=== PATIENT | female | born 1950 | race Caucasian/White ===

== ENCOUNTER → 2021-03-31 | Outpatient (CLI) | payer MEDICARE, OTHER | END | disposition home or self-care (01) | LOC: LABWHC1 10:02 | PROVIDERS: ATTEND Orthopaedic Surgery | DX: Z01.812 Encounter for preprocedural laboratory examination (principal); M16.0 Bilateral primary osteoarthritis of hip | CPT/HCPCS: 86850; 86900; 86901; 87070 ==

== ENCOUNTER 2021-04-11 07:27 | Day surgery (SDC) | payer MEDICARE, OTHER ==
[2021-04-06 13:41] VITALS: BMI 23.9
[~2021-04-11 07:27] MED LIST: ACETAMINOPHEN TAB 500 MG TAB PO PRN; DEXAMETHASONE SOD PHOSPHATE 4 MG/ML 1 ML VIAL IV ONE; GABAPENTIN 300 MG CAP PO PRN; LIDOCAINE 1% (10MG/ML) FOR IV START INTRADERMA PRN; MELOXICAM 7.5 MG TAB PO PRN; MIDAZOLAM 2 MG/2 ML VIAL IV PRN; ONDANSETRON 4 MG/2 ML VIAL IVP ONE; TRANEXAMIC ACID 1,000 MG in SODIUM CHLORIDE 0.9% 100 ML IVPB PRN; fentaNYL (PF) 50 MCG/ML 2 ML AMP IVP PRN
[2021-04-11] MEDS: LACTATED RINGERS 1,000 ML IV SCH (08:17)
[2021-04-11] MEDS ORDERED: PHENYLEPHRINE-0.9% NACL SYG 1,000 MCG/10 ML SYRINGE ONE (09:00)
[2021-04-11] MEDS ORDERED: fentaNYL (PF) 50 MCG/ML 2 ML AMP ONE (09:00)
[2021-04-11] MEDS ORDERED: MIDAZOLAM 2 MG/2 ML VIAL ONE (09:00)
[2021-04-11] MEDS ORDERED: SUCCINYLCHOLINE CHLORIDE 100 MG/5 ML SYR IV ONE (09:00)
[2021-04-11] MEDS ORDERED: PROPOFOL 10 MG/ML 20 ML VIAL IV ONE (09:00)
[2021-04-11] MEDS ORDERED: ePHEDrine SULFATE/0.9% NACL/PF 50 MG/5 ML SYRINGE IV ONE (09:00)
[2021-04-11] MEDS ORDERED: KETAMINE 10 MG/ML 20 ML VIAL ONE (09:00)
[2021-04-11] MEDS ORDERED: ceFAZolin 1,000 MG VIAL ONE (09:00)
[2021-04-11] MEDS ORDERED: TRANEXAMIC ACID 1,000 MG/10 ML VIAL ONE (09:00)
[2021-04-11] MEDS ORDERED: SODIUM CHLORIDE 0.9% 100 ML BAG ONE (09:00)
[2021-04-11] MEDS ORDERED: ceFAZolin 1,000 MG in SODIUM CHLORIDE 0.9% 1,000 ML IRRIGATION ONE ×2 (09:03→10:47)
[2021-04-11] MEDS: ROPIVACAINE/EPI/CLONIDINE/KET 50 ML SYRINGE MISCELLANE PRN ×2 (09:29→10:15)
[2021-04-11] MEDS ORDERED: SODIUM CHLORIDE 0.9% 50 ML with ceFAZolin 1,000 MG IV ONE ×2 (10:43)
[2021-04-11] MEDS ORDERED: LACTATED RINGERS 1,000 ML IV ONE (10:51)
--- NOTE | 2021-04-11 11:22 | P.OP ---
Date of Procedure: 04/11/21 Preoperative Diagnosis: Severe osteoarthritis bilateral hips Postoperative Diagnosis: Severe osteoarthritis bilateral hips Procedure(s) Performed: Bilateral total hip arthroplasty with a direct anterior approach Implants: Left Hip: [employer] Polarstem standard size 2 [employer] R3, 3 hole hemispherical acetabular shell, 48 mm [employer] Reflection 6.5 mm cancellus screw, 20 mm, 25 mm [employer] R3, XLPE 20 acetabular liner [employer] Oxinium femoral head 32 m, -3 All components were press-fit. The articulation is Oxinium on polyethylene. Right Hip [employer] Polarstem standard size 2 [employer] R3, 3 hole hemispherical acetabular shell, 48 mm [employer] Reflection 6.5 mm cancellus screw, 20 mm, 25 mm [employer] R3, XLPE 20 acetabular liner [employer]hew Oxinium femoral head 32 m, -3 All components were press-fit. The articulation is Oxinium on polyethylene Anesthesia: spinal Surgeon: Juni Zladivar Billet Driller #1: Lucy Bonilla Estimated Blood Loss (ml): 200 (66 mL returned with Cell Saver) Pathology: other (Bilateral femoral heads) Condition: stable Disposition: PACU Indications for Procedure: After failure of conservative treatment we discussed the surgical and nonsurgical treatment options at length. Patient wishes to proceed with bilateral total hip arthroplasty with a direct anterior approach. Complications specific to this procedure were discussed at length, including but not limited to infection, leg length discrepancy, dislocation, nerve injury, and fracture. Covid-19 was also discussed at length with the patient, and they are aware of the current policies and procedures. The patient was given the option of delaying surgery, but they elect to proceed knowing these risks. Patient is aware of all these complications and informed consent was obtained Operative Findings: The operative findings are consistent with severe osteoarthritis of the bilateral hips Description of Procedure: Patient was seen and evaluated in the preoperative area and the consent was reviewed. The operative site was marked with a skin marker. The patient was then brought to the operating room and given preoperative antibiotics intravenously. 1 g of Tranexamic acid was also given intravenously. A spinal anesthetic was administered by the anesthesia department. The patient was then placed on the [place] table with the bony prominences well-padded. The hip area was then prepped with a ChloraPrep solution and draped in the usual sterile fashion. A universal timeout was then performed, which confirmed the patient's name, surgical site, ALLERGIES, and procedure being performed on the consent. The procedure began with the left hip first. Next the incision site was located at 1 cm distal to the anterior superior iliac spine along the flexion crease of the hip. The skin and subcutaneous tissues were sharply incised. Incision was carefully dissected down to the fascia overlying the tensor fascia grace muscle. This fascia was then incised in line with the incision. Care was taken to stay laterally in order to avoid injuring the lateral femoral cutaneous nerve. Next, using blunt finger dissection, the tensor fascia grace muscle was dissected off its investing fascia. The muscle was then carefully retracted laterally with a cobra retractor over the lateral neck of the femur. Next, the circumflex vessels were identified and cauterized using the AquaMantis device. The anterior hip capsule was then exposed. The capsule was then opened and an inverted T fashion. Cobra retractors were then placed intracapsularly. The retractors were maintained intracapsular throughout the procedure. The proximal femur was then visualized. A small amount of traction was placed on the leg. The femoral neck was then osteotomized appropriate level above the lesser trochanter. A small wedge of bone was then removed from the remaining femoral head. Next, using a corkscrew the femoral head was removed from the acetabulum. On gross visual inspection, the femoral head had complete loss of articular cartilage and multiple periarticular osteophytes. The femoral head was then measured. Attention was then turned to the acetabulum. The acetabulum was exposed and any remaining labrum was excised. Sequential reaming of the acetabulum was performed using fluoroscopic guidance until there was a good bed of bleeding cancellus bone. When the appropriate size was reached, a trial was then placed. The position and fit of the trial was checked with fluoroscopy. The trial was then removed. Then, using fluoroscopic guidance, the final implant was impacted at 20 of anteversion and 40 of abduction, and fully seated in the acetabulum. 2 screws were then placed in the acetabulum. Again fluoroscopy was used to check position of the screws. Next, the liner was then impacted, with a 20 elevated liner located in the anterior superior quadrant. Component locking was confirmed. Attention was then directed to the femur. With the aid of the [place] table, the femur was externally rotated to approximately 130, extended, and adducted under the opposite leg. A side hook was then placed under the proximal femur, and the side hook elevator was used to elevate the proximal femur while releasing the capsule. Retractors were then placed. A capsular release was performed, as well as a release of the conjoined tendon, which afforded excellent visualization of the proximal femur. Next, a box osteotome was used to lateralize the proximal femur. A circus hand was then used to locate the femoral canal. Sequential broaching was then performed with appropriate size which afforded excellent fixation in the proximal femur. A trial was then placed with appropriate head and neck, and the hip was gently reduced with the aid of the [place] table. Fluoroscopy was then used to check position of the components, as well as to ensure equal leg lengths. The hip was then gently dislocated and the trials were then removed. Final implants were then impacted and the hip was again reduced. Final fluoroscopic x-rays confirmed that the components were in anatomic position, as well as equal leg lengths. The hip was also taken through range of motion, and found to be stable. The hip was then copiously irrigated with antibiotic solution with pulsatile lavage. The hip was then irrigated with Irrisept solution. The soft tissues were then injected with a ropivacaine solution, which consisted of 246.25 mg of ropivacaine, 0.5 mg of epinephrine, 30 mg of Toradol, 80 g of clonidine, and 48.45 mL of sterile water, for a total of 50 mL of fluid injected. A second dose of 1 g of Tranexamic acid was also given intravenously. Any blood collecte d by Cell Saver was then returned to the patient at this time. The fascia was then closed with 2-0 strata fix suture. The subcutaneous tissue was closed with 3-0 Vicryl. The subcuticular tissue was closed with 3-0 strata fix suture. The skin was then closed with Exofin skin glue. After the glue and dried, and Optifoam silver impregnated dressing was applied. The drapes were then removed and attention was directed to the right hip. The hip area was then prepped with a ChloraPrep solution and draped in the usual sterile fashion. A universal timeout was then performed, which confirmed the patient's name, surgical site, ALLERGIES, and procedure being performed on the consent. Next the incision site was located at 1 cm distal to the anterior superior iliac spine along the flexion crease of the hip. The skin and subcutaneous tissues were sharply incised. Incision was carefully dissected down to the fascia overlying the tensor fascia grace muscle. This fascia was then incised in line with the incision. Care was taken to stay laterally in order to avoid injuring the lateral femoral cutaneous nerve. Next, using blunt finger dissection, the tensor fascia grace muscle was dissected off its investing fascia. The muscle was then carefully retracted laterally with a cobra retractor over the lateral neck of the femur. Next, the circumflex vessels were identified and cauterized using the AquaMantis device. The anterior hip capsule was then exposed. The capsule was then opened and an inverted T fashion. Cobra retractors were then placed intracapsularly. The retractors were maintained intracapsular throughout the procedure. The proximal femur was then visualized. A small amount of traction was placed on the leg. The femoral neck was then osteotomized appropriate level above the lesser trochanter. A small wedge of bone was then removed from the remaining femoral head. Next, using a corkscrew the femoral head was removed from the acetabulum. On gross visual inspection, the femoral head had complete loss of articular cartilage and multiple periarticular osteophytes. The femoral head was then measured. Attention was then turned to the acetabulum. The acetabulum was exposed and any remaining labrum was excised. Sequential reaming of the acetabulum was performed using fluoroscopic guidance until there was a good bed of bleeding cancellus bone. When the appropriate size was reached, a trial was then placed. The position and fit of the trial was checked with fluoroscopy. The trial was then removed. Then, using fluoroscopic guidance, the final implant was impacted at 20 of anteversion and 40 of abduction, and fully seated in the acetabulum. 2 screws were then placed in the acetabulum. Again fluoroscopy was used to check position of the screws. Next, the liner was then impacted, with a 20 elevated liner located in the anterior superior quadrant. Component locking was confirmed. Attention was then directed to the femur. With the aid of the [place] table, the femur was externally rotated to approximately 130, extended, and adducted under the opposite leg. A side hook was then placed under the proximal femur, and the side hook elevator was used to elevate the proximal femur while releasing the capsule. Retractors were then placed. A capsular release was performed, as well as a release of the conjoined tendon, which afforded excellent visualization of the proximal femur. Next, a box osteotome was used to lateralize the proximal femur. A circus hand was then used to locate the femoral canal. Sequential broaching was then performed with appropriate size which afforded excellent fixation in the proximal femur. A trial was then placed with appropriate head and neck, and the hip was gently reduced with the aid of the [place] table. Fluoroscopy was then used to check position of the components, as well as to ensure equal leg lengths. The hip was then gently dislocated and the trials were then removed. Final implants were then impacted and the hip was again reduced. Final fluoroscopic x-rays confirmed that the components were in anatomic position, as well as equal leg lengths. The hip was also taken through range of motion, and found to be stable. The hip was then copiously irrigated with antibiotic solution with pulsatile lavage. The hip was then irrigated with Irrisept solution. The soft tissues were then injected with a ropivacaine solution, which consisted of 246.25 mg of ropivacaine, 0.5 mg of epinephrine, 30 mg of Toradol, 80 g of clonidine, and 48.45 mL of sterile water, for a total of 50 mL of fluid injected. A second dose of 1 g of Tranexamic acid was also given intravenously. Any blood collected by Cell Saver was then returned to the patient at this time. The fascia was then closed with 2-0 strata fix suture. The subcutaneous tissue was closed with 3-0 Vicryl. The subcuticular tissue was closed with 3-0 strata fix suture. The skin was then closed with Exofin skin glue. After the glue and dried, and Optifoam silver impregnated dressing was applied. The patient was then transferred to the recovery room in stable condition. The corporate administrative assistant SORIN Arellano was required due to the complexity of surgery, and the need for skilled surgical sales representative for positioning, draping, exposure, retraction, and closure of the wound.
[2021-04-11] MEDS ORDERED: HYDROmorphone 0.2 MG/1 ML SYRINGE IVP PRN (11:37)
[2021-04-11] MEDS ORDERED: HYDROmorphone 0.5 MG/0.5 ML SYRINGE IVP PRN ×2 (11:37)
[2021-04-11] MEDS ORDERED: NALOXONE 0.4 MG/ML 1 ML VIAL IV PRN (11:37)
[2021-04-11] MEDS ORDERED: MAGNESIUM HYDROXIDE 2,400 MG/10 ML CUP PO PRN (11:37)
[2021-04-11] MEDS ORDERED: HYDROcodone/APAP 7.5-325MG 1 EACH TAB PO PRN (11:39)
[2021-04-11] MEDS: HYDROmorphone 0.5 MG/0.5 ML SYRINGE IVP PRN ×2 (12:16→13:40)
--- NOTE | 2021-04-11 13:32 | FL ---
EXAMINATION TYPE: FL guidance operating room, XR Hip Limited LT DATE OF EXAM: 04/11/2021 COMPARISON: NONE HISTORY: 71-year-old female anterior left hip replacement FINDINGS: 2 images provided during intraoperative fluoroscopy of left hip total arthroplasty. FLUOROSCOPY Fluoroscopy time of 43 seconds was used during anterior left hip replacement. 2 image/s document/s t he procedure. IMPRESSION: Intraoperative fluoroscopy as above.
--- NOTE | 2021-04-11 13:33 | FL ---
EXAMINATION TYPE: FL guidance operating room, XR Hip Limited RT DATE OF EXAM: 04/11/2021 COMPARISON: NONE HISTORY: 71-year-old female right anterior replacement FINDINGS: Intraoperative fluoroscopy during right anterior hip replacement. FLUOROSCOPY Fluoroscopy time of 28 seconds was used during anterior right abdominal arthroplasty. 2 image/s docu ment/s the procedure. IMPRESSION: Intraoperative fluoroscopy as above.
[2021-04-11] MEDS: ONDANSETRON 4 MG/2 ML VIAL IVP PRN (14:42)
[2021-04-11] MEDS: SODIUM CHLORIDE 0.9% 1,000 ML IV SCH (14:42)
--- NOTE | 2021-04-11 15:11 | XR ---
EXAMINATION TYPE: XR Hip Limited LT, XR Hip Limited RT DATE OF EXAM: 04/11/2021 Comparison: None Clinical History: 71-year-old female Status post hip surgery, assess surgical alignment Findings: Initial bilateral total hip arthroplasties. Both acetabular cup and femoral stem components of the pr osthesis appear well seated without prosthetic fracture. Alignment grossly anatomic. Scattered soft t issue air related to recent operation. Impression: Uncomplicated postoperative appearance bilateral total hip arthroplasties.
[2021-04-11 16:33] LABS: Glucose,Whole Blood 135 mg/dL (75-99)
[2021-04-11] MEDS ORDERED: SCOPOLAMINE 1.5MG/72HR PATCH TRANSDERM STA (18:14)
[2021-04-11] MEDS: METOCLOPRAMIDE 5 MG/ML 2 ML VIAL IVP PRN (18:29)
[2021-04-11] MEDS ORDERED: SENNOSIDES-DOCUSATE SODIUM 1 EACH TAB PO SCH (21:00)
[2021-04-11] MEDS: ASPIRIN 325 MG TAB PO SCH (22:41)
[2021-04-11] MEDS: HYDROcodone/APAP 7.5-325MG 1 EACH TAB PO PRN (22:41)
[2021-04-12] MEDS ORDERED: SCOPOLAMINE 1.5MG/72HR PATCH TRANSDERM STA (02:47)
[2021-04-12] MEDS: ONDANSETRON 4 MG/2 ML VIAL IVP PRN (03:47)
[2021-04-12] MEDS: HYDROcodone/APAP 7.5-325MG 1 EACH TAB PO PRN ×2 (03:59→10:58)
[2021-04-12] MEDS ORDERED: CYCLOBENZAPRINE 5 MG TAB PO PRN (05:27)
[2021-04-12] MEDS: SODIUM CHLORIDE 0.9% 1,000 ML IV SCH (05:43)
[2021-04-12] MEDS: LACTATED RINGERS 1,000 ML IV SCH (05:44)
[2021-04-12 07:44] VITALS: BP 92/56; PULSE 84; RESP 16; TEMP 98
[2021-04-12] MEDS: METOCLOPRAMIDE 5 MG/ML 2 ML VIAL IVP PRN (07:45)
[2021-04-12] MEDS: ASPIRIN 325 MG TAB PO SCH (07:45)
--- NOTE | 2021-04-12 08:26 | P.DS ---
Providers Date of admission: 04/11/2021 Expected date of discharge: 04/12/21 Attending physician: Juni Zaldivar Consults: 04/11/21 13:08 Consult Physician Routine Consulting Provider: Bismark Johnson Reason/Comments: medical management Do you want consulting provider notified?: Yes Primary care physician: Gina Irene - Discharge Diagnosis(es) (1) Osteoarthritis, hip, bilateral Current Visit: Yes Status: Acute (2) Status post total hip replacement, bilateral Current Visit: Yes Status: Acute Hospital Course: This is a 71-year-old female with known history of degenerative arthritis of bilateral hips. The patient presents for evaluation. After discussion and consideration patient elects to proceed with total hip arthroplasty with anterior approach. The patient is seen preoperatively by her primary care doctor and cleared for surgery. Patient is admitted to [facility] on 04/11/2021 for bilateral total hip arthroplasty with anterior approach. The procedure is performed without complication or sequelae. The patient is doing well postoperatively. Labs and vital signs are stable on day of discharge. On day of discharge patient's hip incision is healing well. There is minimal erythema. There is no drainage noted at this time. There is minimal soft tissue swelling to the hip and thigh. Patient has full foot and ankle motion without difficulty or pain. Neurovascular status to bilateral lower extremities is intact. Patient is discharged to home in good condition pending medical clearance and evaluation by physical therapy. Please see med rec for accurate list of home meds. Patient Condition at Discharge: Good Plan - Discharge Summary Discharge Rx Participant: Yes New Discharge Prescriptions: New HYDROcodone/APAP 7.5-325MG [[place] 7.5-325] 1 - 2 tab PO Q6H PRN #32 tab PRN Reason: Pain Ondansetron Odt [Zofran Odt] 1 tab PO Q8HR PRN #10 tab PRN Reason: Nausea Aspirin 325 mg PO BID #60 tab Sennosides [Senokot] 2 tab PO DAILY PRN #60 tablet PRN Reason: Constipation No Action Pitavastatin Calcium [Livalo] 2 mg PO DAILY Furosemide [Lasix] 20 mg PO DAILY PRN PRN Reason: Edema Cannabidiol (Cbd) [Epidiolex] 1 tab PO DAILY NIFEdipine XL [Procardia Xl] 30 mg PO HS Methocarbamol [Robaxin-750] 750 mg PO BID PRN PRN Reason: Pain Meloxicam 7.5 mg PO DAILY PRN PRN Reason: Pain Methyl Salicylate/Menth/Camph [Salonpas 3.1%-6.0%-10.0% Patch] 1 patch TOPICAL DAILY Cholecalciferol [Vitamin D3 (25 Mcg = 1000 Iu)] 25 mcg PO DAILY Discharge Medication List Furosemide [Lasix] 20 mg PO DAILY PRN 04/06/21 [History] Meloxicam 7.5 mg PO DAILY PRN 04/06/21 [History] Methocarbamol [Robaxin-750] 750 mg PO BID PRN 04/06/21 [History] NIFEdipine XL [Procardia Xl] 30 mg PO HS 04/06/21 [History] Pitavastatin Calcium [Livalo] 2 mg PO DAILY 04/06/21 [History] Methyl Salicylate/Menth/Camph [Salonpas 3.1%-6.0%-10.0% Patch] 1 patch TOPICAL DAILY 04/07/21 [History] Aspirin 325 mg PO BID #60 tab 04/11/21 [Rx] Cannabidiol (Cbd) [Epidiolex] 1 tab PO DAILY 04/11/21 [History] Cholecalciferol [Vitamin D3 (25 Mcg = 1000 Iu)] 25 mcg PO DAILY 04/11/21 [History] HYDROcodone/APAP 7.5-325MG [[place] 7.5-325] 1 - 2 tab PO Q6H PRN #32 tab 04/11/21 [Rx] Ondansetron Odt [Zofran Odt] 1 tab PO Q8HR PRN #10 tab 04/11/21 [Rx] Sennosides [Senokot] 2 tab PO DAILY PRN #60 tablet 04/11/21 [Rx] Follow up Appointment(s)/Referral(s): Juni Zaldivar DO [Doctor of Osteopathic Medicine] - 1 Week Activity/Diet/Wound Care/Special Instructions: Weightbearing as tolerated with walker. Leave dressings intact. Dressings may be removed by home care nurse or by patient in 7 days. Then change dressings twice daily until follow up. May shower with initial dressings intact and after removal. If dressings become saturated, please remove. Please take aspirin 325mg twice daily for 30 days to prevent blood clots. Recommend use of compression stockings daily until follow up to help prevent swelling and blood clots. May remove at night before sleeping. Please follow-up with [facility] in 2 weeks and call with any questions or concerns, . Discharge Disposition: HOME WITH HOME HEALTH SERVICES
[2021-04-12] MEDS ORDERED: MELOXICAM 7.5 MG TAB PO SCH (09:00)
[2021-04-12] MEDS ORDERED: CHOLECALCIFEROL 25 MCG (1000 IU) TABLET PO SCH (09:00)
[2021-04-12 09:36] LABS: Basophils # (A) 0.01 X 10*3/uL (0.00-0.10); Basophils % (A) 0.1 %; Eosinophils # (A) 0 X 10*3/uL (0.04-0.35); Eosinophils % (A) 0 %; HCT 28.7 % (37.2-46.3); Lymphocytes # (A) 0.87 X 10*3/uL (0.90-5.00); Lymphocytes % (A) 10.5 %; MCH 28.4 pg (27.0-32.0); MCHC 31.4 g/dL (32.0-37.0); MCV 90.5 fL (80.0-97.0); Mean Platelet Volume 11.7 fL (9.5-12.2); Monocytes # (A) 1.23 X 10*3/uL (0.20-1.00); Monocytes % (A) 14.9 %; Neutrophils # (A) 6.15 X 10*3/uL (1.80-7.70); Neutrophils % (A) 74.4 %; Platelet Count 152 X 10*3/uL (140-440); RBC 3.17 X 10*6/uL (4.10-5.20); RDW 13.4 % (11.5-14.5); WBC 8.27 X 10*3/uL (4.50-10.00)
--- NOTE | 2021-04-12 14:15 | P.CONS ---
History of Present Illness - Reason for Consult Consult date: 04/12/21 Medical management - History of Present Illness HISTORY OF PRESENT ILLNESS This is a 71-year-old female patient of Dr. Irene with past medical history of hypertension, hyperlipidemia, osteoarthritis. Patient has been brought into the hospital under the care of Dr. Juni Zaldivar status post bilateral total hip arthroplasty, anterior approach. Patient has been hypotensive overnight in the status post bolus order for repeat bolus of 500 ML's. Patient has not received Procardia. Pain is fairly well controlled. She has RA been seen by orthopedics with plan for discharge today. She is having some postop nausea for which she is on Zofran and we will also add and Reglan. Patient has been afebrile, heart rate 84, blood pressure 92/56, pulse ox 98% on room air. Repeat blood work reveals hemoglobin of 9. Patient is reaching 1500 on incentive spirometry. Discharge plan is to return home with her and home care. Continue to monitor blood pressure closely. REVIEW OF SYSTEMS Constitutional: No fever, no chills, no night sweats. No weight change. No weakness, fatigue or lethargy. No daytime sleepiness. EENT: No headache. No blurred vision or double vision, no loss of vision. No loss of Hearing, no ringing in the ears, no dizziness. No nasal drainage or congestion. No epistaxis. No sore throat. Lungs: No shortness of breath, cough, no sputum production. No wheezing. Cardiovascular: No chest pain, no lower extremity edema. No palpitations. No paroxysmal nocturnal dyspnea. No orthopnea. No lightheadedness or dizziness. No syncopal episodes. Abdominal: No abdominal pain. No nausea, vomiting. No diarrhea. No constipation. No bloody or tarry stools.. No loss of appetite. Genitourinary: No dysuria, increased frequency, urgency. No urinary retention. Musculoskeletal: No myalgias. No muscle weakness, no gait dysfunction, no frequent falls. No back pain. No neck pain. Integumentary: No wounds, no lesions. No rash or pruritus. No unusual bruising. No change in hair or nails. Neurologic: No aphasia. No facial droop. No change in mentation. No head injury. No headache. No paralysis. No paresthesia. Psychiatric: No depression. No anxiety. No mood swings. Endocrine: No abnormal blood sugars. No weight change. No excessive sweating or thirst. No cold intolerance. SOCIAL HISTORY Patient is a lifelong nonsmoker. She drinks 1 glass of wine daily. No illicit drug use. She does use THC [place] as needed. Patient lives at home with her . She does not have oxygen/CPAP as nebulizer. Patient does have a walker and cane at home if needed. FAMILY HISTORY Mother at age 80 with brain aneurysm and CVA. Father at age 83 from heart failure. Patient has 1 brother alive at age 76 with a ICD. Patient has one sister with hip replacements. Patient has 5 children and one daughter had uterine cancer. PHYSICAL EXAMINATION Gen: This is is a 71-year-old female. She is resting in a recliner and appears to be comfortable and in no acute distress. HEENT: Head is atraumatic, normocephalic. Pupils equal, round. Sclerae is anicteric. NECK: Supple. No JVD. No lymphadenopathy. No thyromegaly. LUNGS: Clear to auscultation. No wheezes or rhonchi. No intercostal retractions. HEART: Regular rate and rhythm. No murmur. ABDOMEN: Soft. Bowel sounds are present. No masses. No tenderness. EXTREMITIES: No pedal edema. No calf tenderness. Surgical wound to bilateral hips show no signs of infection no significant drainage or redness. NEUROLOGICAL: Patient is awake, alert and oriented x3. Cranial nerves 2 through 12 are grossly intact. ASSESSMENT AND PLAN 1. Osteoarthritis status post bilateral total hip arthroplasty, anterior approach. Patient is to continue PT, OT, activity per surgery, aspirin for DVT prophylaxis, [place] for pain as needed. 2. Postop hypotension. Additional fluid bolus of 500 ML's. Parameters have been placed on Procardia at home. 3. Postop nausea. Patient has Zofran ODT at home, Reglan added. 4. Hypertension. Hold Procardia. 5. Hyperlipidemia. Hold statin for 4 weeks. 6. DVT prophylaxis. Aspirin. DISCHARGE PLAN Home with [facility]. Impression and plan of care have been directed as dictated by the signing physician. Yocasta Worrell nurse practitioner acting as scribe for signing physician. Past Medical History Past Medical History: Hypertension, Osteoarthritis (OA), Pneumonia Additional Past Medical History / Comment(s): Hx liver laceration and 5 broken ribs in 2003 from falling off horse. "GTT on liver panel always out of whack." History of Any Multi-Drug Resistant Organisms: None Reported Past Surgical History: Section, Orthopedic Surgery, Tonsillectomy Additional Past Surgical History / Comment(s): Section X4, bilateral carpal tunnel surgery, bilateral thumb surgery, arthroscopic left knee surgery, cyst removed from ovary. Past Anesthesia/Blood Transfusion Reactions: No Reported Reaction Past Psychological History: No Psychological Hx Reported Smoking Status: Never smoker Past Alcohol Use History: Occasional Additional Past Alcohol Use History / Comment(s): 1 glass of wine nightly. Additional Drug Use History / Comment(s): THC Gummies. Aware no use 24 hrs prior to procedure. States already stopped. - Past Family History Mother Family Medical History: Cancer Daughter(s) Family Medical History: Cancer Father Additional Family Medical History / Comment(s): Heart Disease. Medications and Allergies Home Medications Medication Instructions Recorded Confirmed Type Meloxicam 7.5 mg PO DAILY PRN 04/06/21 04/11/21 History Methocarbamol [Robaxin-750] 750 mg PO BID PRN 04/06/21 04/11/21 History NIFEdipine XL [Procardia XL] 30 mg PO HS 04/06/21 04/11/21 History Methyl Salicylate/Menth/Camph 1 patch TOPICAL DAILY 04/07/21 04/11/21 History [Salonpas 3.1%-6.0%-10.0% Patch] Aspirin 325 mg PO BID #60 tab 04/11/21 Rx Cannabidiol (Cbd) [Epidiolex] 1 tab PO DAILY 04/11/21 04/11/21 History Cholecalciferol [Vitamin D3 (25 25 mcg PO DAILY 04/11/21 04/11/21 History Mcg = 1000 Iu)] HYDROcodone/APAP 7.5-325MG [[place] 1 - 2 tab PO Q6H PRN #32 tab 04/11/21 Rx 7.5-325] Ondansetron Odt [Zofran Odt] 1 tab PO Q8HR PRN #10 tab 04/11/21 Rx Sennosides [Senokot] 2 tab PO DAILY PRN #60 tablet 04/11/21 Rx Furosemide [Lasix] 20 mg PO DAILY PRN #0 04/12/21 04/11/21 Rx Metoclopramide [Reglan] 10 mg PO TID PRN #21 tab 04/12/21 Rx Pitavastatin Calcium [Livalo] 2 mg PO DAILY #0 04/12/21 04/11/21 Rx Allergies Allergy/AdvReac Type Severity Reaction Status Date / Time levofloxacin [From Levaquin] Allergy Lost sense Verified 04/11/21 08:07 of taste X3 yrs pentazocine [From Talwin] Allergy headache Verified 04/11/21 08:07 Physical Exam Vitals: Vital Signs Temp Pulse Resp BP Pulse Ox 04/12/21 07:45 84 16 04/12/21 07:44 98.0 F 84 16 92/56 98 04/12/21 02:50 98.3 F 86 17 96/61 95 04/11/21 20:00 97.7 F 75 17 93/61 100 04/11/21 16:12 73 04/11/21 15:30 73 16 90/58 100 04/11/21 13:45 69 16 110/62 99 04/11/21 13:30 73 16 108/58 100 04/11/21 13:15 67 16 109/59 100 04/11/21 13:00 65 16 101/57 100 04/11/21 12:45 69 16 98/59 100 04/11/21 12:30 74 16 113/60 100 04/11/21 12:15 75 16 126/67 100 04/11/21 12:00 76 16 127/68 100 04/11/21 11:45 77 16 117/60 100 04/11/21 11:37 97 F L 83 16 140/66 100 Intake and Output 04/11/21 04/12/21 04/12/21 22:59 06:59 14:59 Intake Total 240 300 Balance 240 300 Intake: Oral 240 300 Other: # Voids 1 2 # Emeses 6 Weight 63.05 kg Results CBC & Chem 7: 04/12/21 05:43 Labs: Abnormal Lab Results - Last 24 Hours (Table) 04/11/21 Range/Units 16:31 POC Glucose (mg/dL) 135 H (75-99) mg/dL
== END 2021-04-12 14:01 | disposition home health service (06) ==
LOC: OR 07:27 → 4SSUR 13:53 → OR 04-12 14:01
PROVIDERS: ATTEND Orthopaedic Surgery
DX: M16.0 Bilateral primary osteoarthritis of hip (principal); I10 Essential (primary) hypertension; E78.5 Hyperlipidemia, unspecified; Z88.8 Allergy status to other drugs, medicaments and biological substances; Z79.899 Other long term (current) drug therapy
CPT/HCPCS: 97116; 97161; 97535; 97166; 86891; 85025; 88300; 73501 ×2; 27130; C1776; J2250; J1100; J2765 ×2; J0690 ×3; J2405 ×2; J3010; J2370; J0330; J2704; J1170; 86850; 86900; 86901

== ENCOUNTER 2021-04-13 23:00 | Emergency (ER) | payer MEDICARE, OTHER ==
[2021-04-13 23:05] VITALS: BP 113/60; PULSE 98; RESP 18; TEMP 98.7
--- NOTE | 2021-04-14 00:10 | ED ---
Extremity Problem HPI - General Chief complaint: Extremity Problem,Nontraumatic Stated complaint: Right foot swelling Time Seen by Provider: 04/13/21 23:06 Source: patient Mode of arrival: wheelchair Limitations: no limitations - History of Present Illness Initial comments: Patient is a 71-year-old female, presenting to the emergency department for swel ling of her right foot. She is 2 days status post bilateral ARMAND's with Dr. Zaldivar. Patient started noticing an increase in right foot swelling, some intermittent tingling and pain. She called the on-call orthopedic today and they recommended coming in to rule out a DVT. Patient has been recovering well last 2 days, using a walker for assistance. Patient's pain has been well- controlled. She's had no falls or trauma. She has been doing ankle pumps. No history of DVTs, she is currently on aspirin postop. She denies any chest pain or short of breath, no cough, no fevers or chills. No abdominal pain, no nausea or vomiting. She has no further complaints at this time. - Related Data Home Medications Medication Instructions Recorded Confirmed Meloxicam 7.5 mg PO DAILY PRN 04/06/21 04/11/21 Methocarbamol [Robaxin-750] 750 mg PO BID PRN 04/06/21 04/11/21 NIFEdipine XL [Procardia XL] 30 mg PO HS 04/06/21 04/11/21 Methyl Salicylate/Menth/Camph 1 patch TOPICAL DAILY 04/07/21 04/11/21 [Salonpas 3.1%-6.0%-10.0% Patch] Cannabidiol (Cbd) [Epidiolex] 1 tab PO DAILY 04/11/21 04/11/21 Cholecalciferol [Vitamin D3 (25 25 mcg PO DAILY 04/11/21 04/11/21 Mcg = 1000 Iu)] Previous Rx's Medication Instructions Recorded Aspirin 325 mg PO BID #60 tab 04/11/21 HYDROcodone/APAP 7.5-325MG [[place] 1 - 2 tab PO Q6H PRN #32 tab 04/11/21 7.5-325] Ondansetron Odt [Zofran Odt] 1 tab PO Q8HR PRN #10 tab 04/11/21 Sennosides [Senokot] 2 tab PO DAILY PRN #60 tablet 04/11/21 Furosemide [Lasix] 20 mg PO DAILY PRN #0 04/12/21 Metoclopramide [Reglan] 10 mg PO TID PRN #21 tab 04/12/21 Pitavastatin Calcium [Livalo] 2 mg PO DAILY #0 04/12/21 Allergies Allergy/AdvReac Type Severity Reaction Status Date / Time levofloxacin [From Levaquin] Allergy Lost sense Verified 04/13/21 23:06 of taste X3 yrs pentazocine [From Talwin] Allergy headache Verified 04/13/21 23:06 Review of Systems ROS Statement: Those systems with pertinent positive or pertinent negative responses have been documented in the HPI. ROS Other: All systems not noted in ROS Statement are negative. Past Medical History History of Any Multi-Drug Resistant Organisms: None Reported Past Surgical History: Orthopedic Surgery Smoking Status: Never smoker Past Alcohol Use History: None Reported Past Drug Use History: None Reported General Exam - General Exam Comments Initial Comments: GENERAL: Patient is well-developed and well-nourished. Patient is nontoxic and in no acute distress. HEAD: Atraumatic, normocephalic. EYES: Pupils equal round and reactive to light, extraocular movements intact, sclera anicteric, conjunctiva are normal. Eyelids were unremarkable. ENT: Moist mucous membranes. NECK: Normal range of motion, supple without lymphadenopathy or JVD. LUNGS: Unlabored respirations. Breath sounds clear to auscultation bilaterally and equal. No wheezes rales or rhonchi. HEART: Regular rate and rhythm without murmurs, rubs or gallops. ABDOMEN: Soft, nontender, normoactive bowel sounds. No guarding, no rebound. No masses appreciated. : Deferred MUSCULOSKELETAL: Normal extremities with adequate strength and normal range of motion, no pitting or edema. No clubbing or cyanosis. Patient is neurovascular intact bilateral lower extremities. NEUROLOGICAL: Patient is alert and oriented x 3. Motor and sensory are also intact. Cranial nerves II through XII grossly intact. Symmetrical smile. Normal speech, normal gait. PSYCH: Normal mood, normal affect. SKIN: Warm, Dry, normal turgor, no rashes or lesions noted. Limitations: no limitations Course Vital Signs 04/13/21 23:01 Temperature 98.7 F Pulse Rate 98 Respiratory 18 Rate Blood Pressure 113/60 O2 Sat by Pulse 98 Oximetry Medical Decision Making - Medical Decision Making Patient is a 71-year-old female, 2 days status post bilateral ARMAND's with Dr. Zaldivar. She was concerned for some right foot swelling, discomfort and tingling over the past 24 hours, orthopedic on-call for clinic coming in for an ultrasound to rule out DVT. She is no history of DVTs. No significant swelling on exam today, neurovascular intact bilateral lower extremities. Ultrasound today shows no evidence of acute DVT in the right lower extremity. Discussed these findings with the patient and her family. Patient can follow up with her surgeon. She is agreeable to this. She'll continue with her exercises and at home PT. Return parameters were discussed with parents verbalized understanding. Case discussed with Dr. Mead. Disposition Clinical Impression: Swelling of right foot Disposition: HOME SELF-CARE Condition: Stable Instructions (If sedation given, give patient instructions): Normal Exam (ED) Additional Instructions: Please return to the Emergency Department if symptoms worsen or any other concerns. Continue with your at home PT exercises. Follow up with your surgeon. Is patient prescribed a controlled substance at d/c from ED?: No Referrals: Gina Irene DO [Primary Care Provider] - 1-2 days Juni Zaldivar DO [Doctor of Osteopathic Medicine] - 1-2 days Time of Disposition: 00:26
--- NOTE | 2021-04-14 00:21 | US ---
EXAMINATION TYPE: US venous doppler duplex LE RT DATE OF EXAM: 04/13/2021 11:53 PM COMPARISON: NONE CLINICAL HISTORY: recent surgery, right foot pain/swelling. SIDE PERFORMED: Right TECHNIQUE: The lower extremity deep venous system is examined utilizing real time linear array sonog jeff with graded compression, doppler sonography and color-flow sonography. VESSELS IMAGED: Common Femoral Vein Deep Femoral Vein Greater Saphenous Vein * Femoral Vein Popliteal Vein Small Saphenous Vein * Proximal Calf Veins (* superficial vessels) Right Leg: Negative for DVT IMPRESSION: No evidence of deep vein thrombosis in the right leg.
== END 2021-04-14 00:41 | disposition home or self-care (01) ==
LOC: EC 23:00
DX: M79.89 Other specified soft tissue disorders (principal); Z79.899 Other long term (current) drug therapy; Z79.82 Long term (current) use of aspirin; Z88.1 Allergy status to other antibiotic agents
CPT/HCPCS: 99283